=== PATIENT | male | born 1995 | race Caucasian/White ===

== ENCOUNTER 2019-02-28 06:01 | Day surgery (SDC) | payer OTHER ==
[~2019-02-28] VITALS: Ht 185.4 cm; Wt 129.7 kg
[~2019-02-28 06:01] MED LIST: LIDOCAINE 1% MDV 20ML VIAL SQ PRN; LR 1,000 ML IV ONE; ceFAZolin SOD 2 GM in IV 1 EA IV ONE
[2019-02-28] MEDS ORDERED: BUPIVACAINE HCL 0.25% 30 ML VIAL As Ordered ONE (07:07)
[2019-02-28] MEDS ORDERED: POLYSPORIN TOPICAL OINTMENT 15GM As Ordered ONE (07:08)
[2019-02-28] MEDS ORDERED: BACITRACIN OINT 30GM As Ordered ONE (07:08)
[2019-02-28] MEDS ORDERED: PROPOFOL 200 MG/20 ML VIAL As Ordered ONE (07:54)
[2019-02-28] MEDS ORDERED: fentaNYL 100 MCG/2 ML INJECTION (J3010) As Ordered ONE (07:54)
[2019-02-28] MEDS ORDERED: ONDANSETRON 4MG/2ML VIAL (J2405) As Ordered ONE (07:54)
[2019-02-28] MEDS ORDERED: LIDOCAINE 2% INJ 100 MG/5 ML SDV (FOR ANES.) As Ordered ONE (07:54)
[2019-02-28] MEDS ORDERED: dexameTHASONE 4 MG/ML 1ML VIAL (J1100) As Ordered ONE (07:54)
[2019-02-28] MEDS ORDERED: KETOROLAC 60 MG/2 ML VIAL (J1885) As Ordered ONE ×2 (07:54→08:48)
[2019-02-28] MEDS ORDERED: MIDAZOLAM INJ 2 MG/2 ML VIAL (J2250) As Ordered ONE (07:54)
[2019-02-28] MEDS ORDERED: SUGAMMADEX SODIUM 500 MG/5 ML VIAL (BRIDION) As Ordered ONE (08:42)
[2019-02-28] MEDS ORDERED: ONDANSETRON 4MG/2ML VIAL (J2405) IV PRN (09:15)
[2019-02-28] MEDS ORDERED: fentaNYL 100 MCG/2 ML INJECTION (J3010) IV PRN (09:15)
[2019-02-28] MEDS ORDERED: PERCOCET 5MG/325MG TAB PO PRN (09:15)
[2019-02-28] MEDS ORDERED: LR 1,000 ML IV SCH (09:15)
[2019-02-28 10:20] VITALS: BP 131/64
[2019-02-28] MEDS ORDERED: ROCURONIUM BROMIDE 50 MG/5 ML VIAL As Ordered ONE (10:54)
--- NOTE | 2019-02-28 16:17 | RO ---
DATE OF PROCEDURE: 02/28/2019 PREPROCEDURE DIAGNOSES: Retractile right testicle. POSTPROCEDURE DIAGNOSES: Retractile right testicle. PROCEDURE: Right orchiopexy. SURGEON: Joe Park MD MEAL ATTENDANT: None. ANESTHESIA: General. OPERATIVE INDICATIONS: This a 23-year-old male who has been having right testicular pain due to retractile right testicle. He was brought to the operating room today for the above listed procedure. DESCRIPTION OF PROCEDURE: The patient was brought to the operating room and general anesthesia was induced. Prophylactic antibiotics were infused. He was then placed in the supine position and then prepped and draped in the usual sterile fashion. At this point, approximately a 3-4 cm transverse incision was made over the right hemiscrotum. We then dissected down to the scrotal wall layers. Of note, there appeared to be a lot of scarring around the testicle which was unusual as he had not previously had scrotal surgery. The testicle did have normal consistency and there were no masses. After dissecting the testicle out and delivering out of the right hemiscrotum, two separate #2-0 Vicryl sutures were placed in the lateral aspect of the testicle on both sides. These sutures were then stitched into the dartos muscle on either side. The testicle was then delivered back into the right hemiscrotum and those two separate #2-0 sutures were tied down securing the testicle in the right hemiscrotum and further down in the scrotum. Once satisfied with hemostasis, the dartos was closed with running #3-0 chromic suture. The skin was then closed with interrupted #2-0 chromic sutures. Local anesthesia was applied and dressings were applied, and this marked conclusion of procedure. The patient was then awakened from anesthesia and transferred to recovery room in stable condition. ESTIMATED BLOOD LOSS: 10 mL. COMPLICATIONS: None. SPECIMENS: None. PLAN: The patient will followup in the clinic in about 2 weeks for a postoperative visit. KEN
== END 2019-02-28 10:30 | disposition home or self-care (01) ==
LOC: M SDC 06:01
PROVIDERS: ATTEND Urology
DX: Q55.22 Retractile testis (principal); N50.811 Right testicular pain; R51 Headache; Z88.0 Allergy status to penicillin; Z87.891 Personal history of nicotine dependence
CPT/HCPCS: 54640; J0690; J1100; J1885; J2250; J2405; J3010